=== PATIENT | female | born 1945 ===

== ENCOUNTER 2021-07-07 11:17 | Emergency (ER) | payer OTHER ==
[~2021-07-07] VITALS: Ht 152.4 cm; Wt 57.6 kg
[2021-07-07] MEDS ORDERED: FORTAMET1000 MG (11:27)
[2021-07-07] MEDS ORDERED: ZETIA10 MG (11:27)
[2021-07-07] MEDS ORDERED: AVAPRO75 MG (11:28)
== END 2021-07-07 15:31 | disposition home or self-care (01) ==
LOC: ER 11:17
DX: S70.02XA Contusion of left hip, initial encounter (principal); S30.0XXA Contusion of lower back and pelvis, initial encounter; W18.39XA Other fall on same level, initial encounter; Y93.89 Activity, other specified; Y92.098 Other place in other non-institutional residence as the place of occurrence of the external cause; Y99.8 Other external cause status

== ENCOUNTER 2021-08-10 05:54 | Emergency (ER) | payer OTHER ==
[~2021-08-10] VITALS: Ht 152.4 cm; Wt 56.7 kg
[~2021-08-10 05:54] MED LIST: AVAPRO75 MG; FORTAMET1000 MG; ZETIA10 MG
[2021-08-10] MEDS ORDERED: GLIMEPIRIDE4 MG (06:12)
[2021-08-10] MEDS ORDERED: INTEGRA CAPSUL1 EACH (06:13)
[2021-08-10] MEDS ORDERED: MAXIMIN PACK1 EACH (06:13)
[2021-08-10] MEDS ORDERED: AMLODIPINE-OLM1 EAC3 (06:13)
[2021-08-10] MEDS ORDERED: ZETIA10 MG (06:13)
== END 2021-08-10 13:49 | disposition home or self-care (01) ==
LOC: ER 05:54
DX: K80.80 Other cholelithiasis without obstruction (principal); R10.31 Right lower quadrant pain

== ENCOUNTER 2021-08-29 07:29 | Inpatient (IN) | payer OTHER ==
[~2021-08-29] VITALS: Ht 149.9 cm; Wt 54.4 kg
[~2021-08-29 07:29] MED LIST changes: +AMLODIPINE-OLM1 EAC3; +GLIMEPIRIDE4 MG; +INTEGRA CAPSUL1 EACH; +MAXIMIN PACK1 EACH
[2021-09-07] MEDS ORDERED: CARdura 2MG TABLET PO (09:16)
[2021-09-07] MEDS ORDERED: LIDOCAINE 4% TOP (09:16)
[2021-09-07] MEDS ORDERED: NeuRONTin 400MG CAPS PO (09:16)
[2021-09-07] MEDS ORDERED: SPIRONOLACTONE25 MG PO (09:16)
== END 2021-09-07 12:05 | disposition home health service (06) | DRG 683 ==
LOC: ER 07:29 → MEDJ 19:47
PROVIDERS: ADMIT Internal Medicine; ATTEND Internal Medicine
PROC: 02HV33Z Insertion of Infusion Device into Superior Vena Cava, Percutaneous Approach (ICD-10-PCS; 2021-09-04)
PROC: 30233N1 Transfusion of Nonautologous Red Blood Cells into Peripheral Vein, Percutaneous Approach (ICD-10-PCS; principal; 2021-09-05)
DX: N17.0 Acute kidney failure with tubular necrosis (principal); E87.1 Hypo-osmolality and hyponatremia; E87.2 Acidosis; B02.8 Zoster with other complications; E87.5 Hyperkalemia; Z20.822 Contact with and (suspected) exposure to COVID-19; D64.9 Anemia, unspecified; M54.59 Other low back pain